=== PATIENT | male | born 1955 | race African-American/Black ===

== ENCOUNTER 2020-08-26 18:01 | Inpatient (IN) | payer BC, MEDICAID ==
[~2020-08-26] VITALS: Ht 185.4 cm; Wt 83.5 kg
[2020-08-26] MEDS ORDERED: SODIUM CHLORIDE 0.9% 1,000 ML IV ONE ×2 (19:15→20:15)
[2020-08-26 19:33] LABS: BASOPHILS % 0.3 % (0.0-2.0); EOSINOPHILS % 3.8 % (0.0-5.0); HEMATOCRIT. 36.8 % (42.0-52.0); HEMOGLOBIN. 12.1 g/dL (14.0-18.0); LYMPHOCYTES % 20.7 % (20.0-50.0); MEAN CORPUSCULAR HEMOGLOBIN 26.2 pg (28.0-32.0); MEAN CORPUSCULAR VOLUME 79.4 fL (80.0-94.0); MONOCYTES % 6.8 % (2.0-8.0); NEUTROPHILS % 68.4 % (40.0-76.0); PLATELET 129 x1000/uL (130-400); RED BLOOD CELL COUNT 4.63 mill/uL (4.7-6.1); RED CELL DISTRIBUTION WIDTH 14.4 % (11.6-14.6)
[2020-08-26 19:39] LABS: CHLORIDE 105 mEq/L (98-107)
[2020-08-26 19:47] LABS: BETA HYDROXYBUTYRATE 0.1 mMol/L (0.0-0.3)
[2020-08-26] MEDS ORDERED: INSULIN REGULAR 0.5UNIT/ML SYR(NEO) IV ONE (20:15)
[2020-08-26] MEDS ORDERED: INSULIN REGULAR (HUMULIN R) 300UNITS/3ML IV NR (20:45)
[2020-08-26 21:43] LABS: CLARITY URINE CLEAR (CLEAR); COLOR URINE YELLOW (YELLOW); KETONES URINE NEGATIVE (NEGATIVE); LEUKOCYTE ESTERASE URINE NEGATIVE (NEGATIVE); NITRITE URINE NEGATIVE (NEGATIVE); OCCULT BLOOD URINE NEGATIVE (NEGATIVE); PROTEIN URINE 3+ (NEGATIVE); SPECIFIC GRAVITY URINE 1.023 (1.005-1.030)
[2020-08-26 23:55] VITALS: BP 145/76
[2020-08-27] VITALS: BP 145/76
[2020-08-27] MEDS: ZOLPIDEM TARTRATE 5MG TABLET PO PRN ×2 (01:04→21:30)
[2020-08-27] MEDS ORDERED: DEXTROSE 50% WATER 50ML SYRINGE IV PRN (01:30)
[2020-08-27] MEDS ORDERED: INSASP SUBCUT (02:14)
[2020-08-27] MEDS ORDERED: XALAO EACHEYE (02:14)
[2020-08-27] MEDS ORDERED: GABA-531 PO (02:14)
[2020-08-27] MEDS ORDERED: INSU100I28 SQ (02:14)
[2020-08-27] MEDS ORDERED: BRIM.2 EACHEYE (02:14)
[2020-08-27] MEDS ORDERED: DORZ10DR12 EACHEYE (02:14)
[2020-08-27] MEDS ORDERED: *PATIENT'S OWN MEDICATION STORAGE XX SCH (02:45)
[2020-08-27] MEDS ORDERED: VANCOMYCIN 1500MG in DEXTROSE 5% WATER 250ML IV SCH (03:00)
[2020-08-27 04:00] VITALS: BP 160/71
[2020-08-27] MEDS ORDERED: PIPERACILLIN/TAZOBACTAM 3.375 G/VIAL IV SCH (06:00)
[2020-08-27] MEDS: GABAPENTIN 300MG CAPSULE PO SCH ×3 (06:20→21:29)
[2020-08-27] MEDS: PIPERACILLIN/TAZOBACTAM 2.25 G in DEXTROSE 5% WATER 50 ML IV SCH ×3 (06:20→17:13)
[2020-08-27] MEDS: BLOOD SUGAR DIAGNOSTIC STRIP TEST SCH ×4 (06:20→21:31)
[2020-08-27] MEDS: INSULIN LISPRO 100 UNITS/ML SUBCUT SCH ×7 (06:58→21:00)
[2020-08-27 08:00] VITALS: BP 148/77
[2020-08-27] MEDS: ENOXAPARIN 40MG/0.4ML SYR SUBCUT SCH (08:41)
[2020-08-27] MEDS: DORZOLAM/TIMOLOL 2.23/0.68% OPHTH DROPS 10ML EACHEYE SCH ×2 (08:42→21:31)
[2020-08-27] MEDS: BRIMONIDINE 0.2% OPHTH DROPS 5ML EACHEYE SCH ×2 (08:42→21:31)
[2020-08-27] MEDS: LISINOPRIL 20MG TABLET PO SCH (08:42)
[2020-08-27] MEDS ORDERED: ENOXAPARIN 30MG/0.3ML SYR SUBCUT SCH (09:00)
[2020-08-27] MEDS: INSULIN GLARGINE UD 100 UNITS/ML SYR SUBCUT SCH ×2 (09:28→21:54)
[2020-08-27] MEDS ORDERED: INFLUENZA VACCINE 05/PF 0.5 ML VIAL IM ONE (10:00)
[2020-08-27] MEDS ORDERED: PNEUMOCOCCAL 23-VAL P-SAC VAC 0.5 ML IM ONE (10:00)
[2020-08-27 10:36] LABS: BASOPHILS % 0.4 % (0.0-2.0); EOSINOPHILS % 4.1 % (0.0-5.0); HEMATOCRIT. 34.1 % (42.0-52.0); HEMOGLOBIN. 11.1 g/dL (14.0-18.0); LYMPHOCYTES % 16.2 % (20.0-50.0); MEAN CORPUSCULAR VOLUME 79.8 fL (80.0-94.0); MEAN PLATELET VOLUME 11.1 fl (7.4-10.4); MONOCYTES % 6.8 % (2.0-8.0); NEUTROPHILS % 72.5 % (40.0-76.0); PLATELET 131 x1000/uL (130-400); RED BLOOD CELL COUNT 4.27 mill/uL (4.7-6.1); RED CELL DISTRIBUTION WIDTH 14.4 % (11.6-14.6)
[2020-08-27] MEDS: ASPIRIN 81MG TABLET PO SCH (11:49)
[2020-08-27 12:00] VITALS: BP 146/72
[2020-08-27 15:38] VITALS: BP 159/77
[2020-08-27 20:00] VITALS: BP 124/72
[2020-08-27] MEDS ORDERED: VANCOMYCIN 1 G PREMIX 200 ML IV SCH (21:00)
[2020-08-27] MEDS: TAMSULOSIN HCL 0.4MG SR CAPSULE PO SCH (21:29)
[2020-08-27] MEDS: LATANOPROST 0.005% OPHTH DROPS 2.5ML EACHEYE SCH (21:31)
[2020-08-28] VITALS: BP 131/86
[2020-08-28] MEDS: PIPERACILLIN/TAZOBACTAM 2.25 G in DEXTROSE 5% WATER 50 ML IV SCH ×2 (00:40→06:30)
[2020-08-28 04:00] VITALS: BP 130/92
[2020-08-28] MEDS: GABAPENTIN 300MG CAPSULE PO SCH ×3 (06:30→21:14)
[2020-08-28] MEDS: BLOOD SUGAR DIAGNOSTIC STRIP TEST SCH ×4 (06:30→21:34)
[2020-08-28] MEDS: INSULIN LISPRO 100 UNITS/ML SUBCUT SCH ×6 (06:34→22:12)
[2020-08-28 08:00] VITALS: BP 152/73
[2020-08-28] MEDS: LISINOPRIL 20MG TABLET PO SCH (09:00)
[2020-08-28] MEDS: ASPIRIN 81MG TABLET PO SCH (09:00)
[2020-08-28] MEDS: ENOXAPARIN 40MG/0.4ML SYR SUBCUT SCH (09:00)
[2020-08-28] MEDS: DORZOLAM/TIMOLOL 2.23/0.68% OPHTH DROPS 10ML EACHEYE SCH ×2 (09:00→21:20)
[2020-08-28] MEDS: BRIMONIDINE 0.2% OPHTH DROPS 5ML EACHEYE SCH ×2 (09:00→21:20)
[2020-08-28] MEDS: INSULIN GLARGINE UD 100 UNITS/ML SYR SUBCUT SCH ×2 (09:37→21:41)
[2020-08-28 12:00] VITALS: BP 149/77
[2020-08-28] MEDS: AMLODIPINE 10MG TABLET PO SCH (14:59)
[2020-08-28 16:00] VITALS: BP 119/53
[2020-08-28 20:00] VITALS: BP 151/77
[2020-08-28] MEDS: ZOLPIDEM TARTRATE 5MG TABLET PO PRN (21:14)
[2020-08-28] MEDS: TAMSULOSIN HCL 0.4MG SR CAPSULE PO SCH (21:16)
[2020-08-28] MEDS: LATANOPROST 0.005% OPHTH DROPS 2.5ML EACHEYE SCH (21:20)
[2020-08-29] VITALS: BP 157/92
[2020-08-29 04:00] VITALS: BP 125/59
[2020-08-29] MEDS: BLOOD SUGAR DIAGNOSTIC STRIP TEST SCH ×4 (06:26→20:37)
[2020-08-29] MEDS: INSULIN LISPRO 100 UNITS/ML SUBCUT SCH ×4 (06:28→20:35)
[2020-08-29] MEDS: GABAPENTIN 300MG CAPSULE PO SCH ×3 (06:34→20:34)
[2020-08-29 08:00] VITALS: BP 151/78
[2020-08-29] MEDS: AMLODIPINE 10MG TABLET PO SCH (08:57)
[2020-08-29] MEDS: DORZOLAM/TIMOLOL 2.23/0.68% OPHTH DROPS 10ML EACHEYE SCH ×2 (08:58→20:36)
[2020-08-29] MEDS: ENOXAPARIN 40MG/0.4ML SYR SUBCUT SCH (08:58)
[2020-08-29] MEDS: BRIMONIDINE 0.2% OPHTH DROPS 5ML EACHEYE SCH ×2 (08:59→20:36)
[2020-08-29] MEDS: ASPIRIN 81MG TABLET PO SCH (09:00)
[2020-08-29] MEDS ORDERED: TAMS-11 PO (11:53)
[2020-08-29] MEDS ORDERED: AMLO10TA80 MT (11:53)
[2020-08-29 12:00] VITALS: BP 136/69
[2020-08-29] MEDS: INSULIN GLARGINE UD 100 UNITS/ML SYR SUBCUT SCH ×2 (12:28→20:36)
[2020-08-29 16:00] VITALS: BP 148/74
[2020-08-29 20:00] VITALS: BP 174/83
[2020-08-29] MEDS: TAMSULOSIN HCL 0.4MG SR CAPSULE PO SCH (20:35)
[2020-08-29] MEDS: LATANOPROST 0.005% OPHTH DROPS 2.5ML EACHEYE SCH (20:36)
[2020-08-30] VITALS: BP 127/87
[2020-08-30] MEDS: ZOLPIDEM TARTRATE 5MG TABLET PO PRN (01:03)
[2020-08-30 03:56] VITALS: BP 126/76
[2020-08-30] MEDS: BLOOD SUGAR DIAGNOSTIC STRIP TEST SCH ×2 (06:31→11:20)
[2020-08-30] MEDS: GABAPENTIN 300MG CAPSULE PO SCH ×2 (06:31→14:00)
[2020-08-30 08:00] VITALS: BP 145/69
[2020-08-30] MEDS: INSULIN LISPRO 100 UNITS/ML SUBCUT SCH ×2 (08:47→11:21)
[2020-08-30] MEDS: ASPIRIN 81MG TABLET PO SCH (09:00)
[2020-08-30] MEDS: AMLODIPINE 10MG TABLET PO SCH (09:04)
[2020-08-30] MEDS: BRIMONIDINE 0.2% OPHTH DROPS 5ML EACHEYE SCH (09:05)
[2020-08-30] MEDS: ENOXAPARIN 40MG/0.4ML SYR SUBCUT SCH (09:05)
[2020-08-30] MEDS: DORZOLAM/TIMOLOL 2.23/0.68% OPHTH DROPS 10ML EACHEYE SCH (09:05)
[2020-08-30] MEDS: INSULIN GLARGINE UD 100 UNITS/ML SYR SUBCUT SCH (11:20)
[2020-08-30 12:00] VITALS: BP 140/68
[2020-08-30 15:55] VITALS: BP 140/68
[2020-08-30] MEDS ORDERED: INSULIN GLARGINE UD 100 UNITS/ML SYR SUBCUT SCH (22:00)
== END 2020-08-30 16:50 | disposition home or self-care (01) | DRG 637 ==
LOC: ER 18:01 → ENRESERV 23:00 → 5WST 23:44
PROVIDERS: ADMIT Internal Medicine; ATTEND Internal Medicine
DX: E11.65 Type 2 diabetes mellitus with hyperglycemia (principal); N17.0 Acute kidney failure with tubular necrosis; E44.0 Moderate protein-calorie malnutrition; D64.9 Anemia, unspecified; F02.80 Dementia in other diseases classified elsewhere, unspecified severity, without behavioral disturbance, psychotic disturbance, mood disturbance, and anxiety; G30.9 Alzheimer's disease, unspecified; I10 Essential (primary) hypertension; N40.0 Benign prostatic hyperplasia without lower urinary tract symptoms; L85.3 Xerosis cutis; Z86.73 Personal history of transient ischemic attack (TIA), and cerebral infarction without residual deficits; Z68.24 Body mass index [BMI] 24.0-24.9, adult; Z79.4 Long term (current) use of insulin; Z89.422 Acquired absence of other left toe(s); Z79.82 Long term (current) use of aspirin; Z79.899 Other long term (current) drug therapy
CPT/HCPCS: 36415; 80048; 80053; 80061; 81003; 82010; 82962; 83036; 84484; 85025; 90686; 90732; 93923; 97162; 99285; J1650; J1815; J2543; J3370; J7030; J7060